=== PATIENT | female | born 1980 | race Caucasian/White ===

== ENCOUNTER 2019-04-13 14:16 | Outpatient (CLI) | payer MEDICAID, SELFPAY ==
[2019-04-13 15:01] LABS: Abs Immature Grans 0.01 k/cumm (0.0-0.09); Absolute Basophil Count 0.03 k/cumm (0.0-0.2); Absolute Eosinophil Count 0.07 k/cumm (0.0-0.7); Absolute Monocyte Count 0.44 k/cumm (0.11-0.7); Absolute Neutrophil Count 4.52 k/cumm (1.2-6.7); Basophils % 0.5; Eosinophils % 1.1; HGB 14.2 g/dL (12.0-15.5); Immature Grans % 0.2; Lymphocytes % 19.1; Mean Corpuscular Hemoglobin 29.8 pg (27.0-33.0); Mean Corpuscular Volume 90.1 fL (80-95); Mean Platelet Volume 9.3 fL (8.0-11.0); Neutrophils % 72.1; Platelet Count 279 x1000/uL (130-400); RBC 4.77 m/cumm (4.00-5.20); White Blood Cell Count 6.27 k/cumm (4.4-10.8)
[2019-04-13 15:51] LABS: ESR 8 mm/hr (0-20)
[2019-04-13 15:58] LABS: ALT 22 U/L (14-59); AST 18 U/L (15-37); Albumin 4.1 g/dL (3.4-5.0); Alkaline Phosphatase 59 U/L (46-116); Anion Gap 11.5 mmol/L (3-11); BUN 10 mg/dL (7-18); Bilirubin, Total 0.4 mg/dL (0.2-1.0); CO2 25.5 mmol/L (21.0-32.0); CREATININE 0.85 mg/dL (0.55-1.02); Calcium 8.8 mg/dL (8.5-10.1); Chloride 104 mmol/L (98-107); Glucose 65 mg/dL (70-100); Sodium 141 mmol/L (136-145); TSH 1.99 uIU/mL (0.36-3.74)
[2019-04-14 10:37] LABS: Lyme Ab w Rflx to Lyme Confirm Negative
[2019-04-14 10:49] LABS: Rheumatoid Factor 9 IU/mL (<12.5)
== END 2019-04-13 14:36 ==
PROVIDERS: PCP Acupuncturist; Visit Provider Naturopath
DX: M25.571 Pain in right ankle and joints of right foot (principal); M54.5 Low back pain; R50.81 Fever presenting with conditions classified elsewhere; R61 Generalized hyperhidrosis
CPT/HCPCS: 36415; 80053; 85652; 84443; 85025; 86431; 86618

== ENCOUNTER 2019-06-01 02:01 | Outpatient (CLI) | payer MEDICAID, SELFPAY | END 2019-06-01 02:21 | PROVIDERS: PCP Acupuncturist; Visit Provider Naturopath | DX: R06.02 Shortness of breath (principal) | CPT/HCPCS: 93005; 93010 ==

== ENCOUNTER 2019-06-30 13:44 | Outpatient (CLI) | payer MEDICAID, SELFPAY | END 2019-06-30 14:04 | PROVIDERS: PCP Acupuncturist; Visit Provider Naturopath | DX: B60.0 Babesiosis (principal) | CPT/HCPCS: 36415; 87207 ==

== ENCOUNTER 2019-07-01 00:44 | Outpatient (CLI) | payer MEDICAID, SELFPAY | END 2019-07-01 01:04 | PROVIDERS: PCP Acupuncturist; Visit Provider Naturopath | DX: B60.0 Babesiosis (principal) | CPT/HCPCS: 36415; 87207 ==

== ENCOUNTER 2022-07-08 09:11 | Outpatient (CLI) | payer MEDICAID, SELFPAY ==
--- NOTE | 2022-07-08 09:00 | RT.EKG_ITS ---
APPROVED REPORT Exam: Resting ECG Reason for Exam: CHEST PAIN Patient Location: O HR:68 bpm ECG Measurements Heart Rate 68 AXIS WV 142 P 44 QRSd 100 QRS 24 QT 396 T 28 QTc 422 Conclusion Sinus rhythm...normal P axis, V-rate 50- 99 Normal Electrocardiogram
== END 2022-07-08 09:12 | disposition home or self-care (01) ==
LOC: CARDOPNVT 09:11
PROVIDERS: PCP Acupuncturist; Visit Provider Naturopath
DX: R07.89 Other chest pain (principal)
CPT/HCPCS: 93005; 93010

== ENCOUNTER 2022-12-25 19:01 | Emergency (ER) | payer MEDICAID, SELFPAY ==
[2022-12-25 19:08] VITALS: BP 120/71; PULSE 81; RESP 20; TEMP 36.3; O2SAT 99
--- NOTE | 2022-12-25 19:36 | ED.GENADUL_ITS ---
Discharge Plan Disposition Patient Disposition: Home Condition: Stable Discharge Details Clinical Impression: Puncture wound of foot, left Primary Care Provider: Sylvia Casanova ED Provider: Lary Villatoro Home Meds and New Rx's Prescriptions: New amoxicillin-pot clavulanate 875-125 mg tablet 1 tab PO BID 7 Days Qty: 14 0RF Rx Instructions: Take one tablet twice daily x 7 days Discharge Instructions Instructions: Puncture Wound (ED) Additional Instructions: Keep clean and dry. Wash with soap and water daily. Allow to air dry. Take the antibiotic with yogurt or probiotic as directed. You were given a tetanus vaccination today. Follow up with primary care provider in 3-5 days. Return to ED sooner if any worsening signs of infection such as red streaks swelling or drainage or concerns. Increase oral fluids. Please take Tylenol or Ibuprofen with food every 4-6 hours as needed for pain and swelling. Referrals: Sylvia Casanova [Primary Care Provider] - 2 weeks Discharge Data Discharge Date/Time-TO BE ENTERED AT DEPARTURE: 12/25/22 20:06 Medical Decision Making 42-year-old female presents to the ER after stepping on a anne nail prior to arrival. Went through her shoe. She is unsure of her last tetanus vaccination. She does have a small puncture wound noted to her left foot the mid pad. No bleeding. No other associated symptoms or concerns. Tdap booster ordered, Augmentin 1 tablet here and to go. Discussed home care. This text was generated using [employer] dictation system, please disregard any oddities of phrase or misspellings. HPI General Mode of arrival: ambulatory . Date/Time Provider Initiated Documentation: 12/25/22 19:34 . Limitations to Documentation: no limitations . Information obtained by: patient, RN notes reviewed and old records reviewed . HPI Narrative: 42-year-old female presents to the ER after stepping on a anne nail prior to arrival. Went through her shoe. She is unsure of her last tetanus vaccination. She does have a small puncture wound noted to her left foot the mid pad. No bleeding. No other associated symptoms or concerns. Related Data Home Medications Medication Instructions Recorded Confirmed amoxicillin 875 mg-potassium 1 tab PO BID 7 days #14 tabs 12/25/22 clavulanate 125 mg tablet Previous Rx's Medication Instructions Recorded amoxicillin 875 mg-potassium 1 tab PO BID 7 days #14 tabs 12/25/22 clavulanate 125 mg tablet Allergies Allergy/AdvReac Type Severity Reaction Status Date / Time No Known Allergies Allergy Unverified 12/25/22 19:15 General Stated Complaint: Laceration KALYN: 4 Review of Systems All systems reviewed & are unremarkable except as noted in HPI and below Integumentary/Breasts Skin/Breast: Reports as per HPI and Reports wounds PFSH All Active Problems (Updated 12/25/22 @ 19:39 by Lary Villatoro NP) Puncture wound of foot, left (Acute) Social History Smoking/Tobacco Use Status: Never Smoking risk assessment performed?: Yes Drug use: Never Do you feel safe at home: Yes Do you feel safe in your relationship?: Yes Exam Extrem Left lower extremity: foot Details: puncture wound plantar medial proximal Details: single Ankle/foot/toe images: 1. Single puncture wound, no bleeding at this time, distal CMS intact. Course Vital Signs Vital signs: Vital Signs Temperature 36.3 C L 12/25/22 19:08 Pulse 81 12/25/22 19:08 Respiratory Rate 20 12/25/22 19:08 Blood Pressure 120/71 12/25/22 19:08 Pulse Oximetry 99 12/25/22 19:08 Temperature 36.3 C L 12/25/22 19:08 Pulse 81 12/25/22 19:08 Respiratory Rate 20 12/25/22 19:08 Blood Pressure 120/71 12/25/22 19:08 Blood Pressure Position Sitting 12/25/22 19:08 Pulse Oximetry 99 12/25/22 19:08 Oxygen Delivery Method Room Air 12/25/22 19:08 Oxygen Flow Rate 0 12/25/22 19:08 Pain Level 4 12/25/22 19:08
[2022-12-25] MEDS: Amox. 875/Clav. 125, 2 TABS/BTL 1 TAB PO (20:02)
[2022-12-25] MEDS: Amoxicillin 875/Clav. 125 TAB PO (20:03)
== END 2022-12-25 20:06 | disposition home or self-care (01) ==
PROVIDERS: Emergency Provider Registered Nurse Emergency; PCP Acupuncturist
DX: S91.332A Puncture wound without foreign body, left foot, initial encounter (principal); W45.0XXA Nail entering through skin, initial encounter
CPT/HCPCS: 90471; 99284

== ENCOUNTER 2024-08-27 02:56 | Emergency (ER) | payer MEDICAID, SELFPAY ==
--- NOTE | 2024-08-27 02:57 | ED.GENADUL_ITS ---
Discharge Plan Disposition Patient Disposition: Home Condition: Good Discharge Details Clinical Impression: Syncope, Minor closed head injury Primary Care Provider: Sylvia Casanova ED Provider: Howard Rousseau Home Meds and New Rx's Prescriptions: No Action No Known Home Meds Discharge Instructions Instructions: Fainting, Adult ED, Minor Head Injury, Adult ED Additional Instructions: You were seen in the ED after a fainting event with resulting head injury. Your vital signs, exam, EKG, CT head are all reassuring. Would rest over the next day or 2 and continue Tylenol as needed. Drink plenty of fluids to stay hydrated. Follow-up with primary care next week especially if continued headaches, nausea. You should return to the ED if you develop severe worsening headache, neurologic change, chest pain, shortness of breath, persistent vomiting, recurrent syncope, other concerns. Referrals: Sylvia Casanova [Primary Care Provider] - [facility] General Mode of arrival: ambulatory . Date/Time Provider Initiated Documentation: 08/27/24 02:57 . Limitations to Documentation: no limitations . Information obtained by: patient and RN notes reviewed . HPI Narrative: Patient presents to ED with complaint of headache and nausea status post syncopal event with resulting head injury. This occurred around 10 PM. She had been in the sauna and started to feel unwell. She did make it outside but got very lightheaded dizzy ultimately passed out. She has been using the sauna for quite a while and has not had this happen to her. She has not been unwell as of recent. No alcohol this evening. Did not experience any chest pain or shortness of breath. When she came to she had episode of vomiting. She has continued to feel nauseated. She has a headache that has gotten a little worse over time. She has pain to the left side of her head which is where she thinks she hit. She has no neck pain. Continues to have no chest pain or shortness of breath. Feels a little tingly in both hands but otherwise no numbness or weakness. Denies any significant medical history. Related Data Home Medications ?Medication ?Instructions ?Recorded ?Confirmed Unknown [No Known Home Meds] 08/27/24 08/27/24 Allergies Allergy/AdvReac Type Severity Reaction Status Date / Time No Known Allergies Allergy Unverified 08/27/24 03:23 General KALYN: 4 Exam Narrative Exam Narrative: Const: WDWN female in NAD. VS per triage. HEENT: NC/AT. Normal facial exam. Neck: Supple. Trachea midline. No spinal tenderness. Lungs: Normal respiratory effort. Lungs are clear. Cor: RRR without murmur. Good radial pulses. Neuro: A+O x 3. Normal speech, mentation, gait. Cranial nerves II - XII grossly intact. No gross motor or sensory deficit. Ext: No C/C/E. Medical Decision Making Patient presents to ED status post syncopal event after she had been using the sauna. She is unsure how long she had been in there. She denies any chest pain or shortness of breath. She felt unwell which made her leave the sauna to go outside at which point she passed out. She has not been ill as of recent and had no alcohol consumption. Still feel this is likely related from sauna use, vasodilatation, orthostasis. Her vital signs here are normal. Her neurologic exam is normal. No cervical spine is cleared clinically. An EKG is sinus rhythm with normal axis and intervals and no acute ST changes. Some mild early repolarization changes only. Because of a persistent and worsening headache with persistent nausea will obtain CT head. She is given Tylenol for the headache as she has not taken anything as of yet. I do not think laboratory studies are necessary at this time. CT head per preliminary radiology read with no acute traumatic injury noted. Feels a little better after the Tylenol. No new symptoms or concerns, stable while here. Recommend rest and continue Tylenol over the next day or 2. Follow-up with primary care next week. Return precautions provided. ECG Data Attestation: I personally reviewed and interpreted this ECG (s) as follows: Prior ECG tracings: available for review Interpretation: see EKG/MDM Quality:SDOH Health Related Social Needs: No Data to Display PFSH All Active Problems (Updated 08/27/24 @ 04:26 by Howard Rousseau MD) Minor closed head injury (Acute) Syncope (Chronic) Medical History No significant past medical history Surgical History H/O oral surgery Social History Smoking/Tobacco Use Status: Never Smoking risk assessment performed?: Yes Alcohol Intake: never Drug use: Never Substance use type: does not use Housing: house Do you feel safe at home: Yes Do you feel safe in your relationship?: Yes
[2024-08-27 03:00] VITALS: PULSE 79; RESP 23; TEMP 36.8; O2SAT 98
--- NOTE | 2024-08-27 03:00 | RT.EKG_ITS ---
APPROVED REPORT Exam: Resting ECG Reason for Exam: fall Patient Location: E HR:73 bpm ECG Measurements Heart Rate 73 AXIS MS 152 P 29 QRSd 95 QRS 29 QT 385 T 34 QTc 425 Conclusion Sinus rhythm...normal P axis, V-rate 60- 99 ST elev, probable normal early repol pattern...ST elevation, age<55 There are no significant changes compared to prior EKG performed on 07/08/2022 at 09:14.
[2024-08-27] MEDS: Acetaminophen 500 MG TAB 1000 MG PO (03:22)
--- NOTE | 2024-08-27 03:46 | DI.CT_ITS ---
Exam(s) CT HEAD WO EXAM: CT HEAD WO CLINICAL HISTORY: head injury/headache/nausea. TECHNIQUE: Imaging Protocol: Axial computed tomography images with coronal and sagittal reformatted images were created and reviewed COMPARISON: No exams were available for comparison FINDINGS: There are no skull fractures. There is no fluid in the visualized paranasal sinuses. There is no evidence of intracranial hemorrhage, mass effect, or shift of midline structures. There are no extra-axial fluid collections. The ventricles are not enlarged or shifted and there is no blo od within the ventricular system nor within the basal cisterns. IMPRESSION: No acute intracranial findings on this noninfused CT scan of the brain. RADIATION DOSE DELIVERED: 796.87mGy.cm Total DLP DATA REPOSITORY: All CT scans at this facility are submitted to the National Radiology Data Registry (NRDR) Dose Index Registry (DIR) with the [employer] ([employer]). RADIATION OPTIMIZATION: All CT scans at this facility use at least one of these dose optimization te chniques: automated exposure control; mA and/or kV adjustment per patient size (includes targeted exa ms where dose is matched to clinical indication); or iterative reconstruction.
--- NOTE | 2024-08-27 04:19 | DI.VRAD_ITS ---
PROCEDURE INFORMATION: Exam: CT Head Without Contrast Exam date and time: 08/27/2024 3:39 AM Age: 43 years old Clinical indication: Injury or trauma; Fall; Blunt trauma (contusions or hematomas); Consciousness not specified; Injury date: 08/27/24; Head injury/headache/nausea TECHNIQUE: Imaging protocol: Computed tomography of the head without contrast. Radiation optimization: All CT scans at this facility use at least one of these dose optimization techniques: automated exposure control; mA and/or kV adjustment per patient size (includes targeted exams where dose is matched to clinical indication); or iterative reconstruction. COMPARISON: No relevant prior studies available. FINDINGS: Brain: Normal. Cerebral ventricles: No ventriculomegaly. Paranasal sinuses: Visualized sinuses are unremarkable. No fluid levels. Mastoid air cells: Normal as visualized. Bones: Unremarkable. No acute fracture. Soft tissues: Unremarkable. IMPRESSION: No acute intracranial abnormality. Dictated and Authenticated by: Mio Napier MD. Orderin Soham Lawrence MD
[2024-08-27 04:38] VITALS: BP 101/57; PULSE 59; RESP 16; O2SAT 98
== END 2024-08-27 04:57 | disposition home or self-care (01) ==
PROVIDERS: Emergency Provider Emergency Medicine; PCP Acupuncturist
DX: S01.80XA Unspecified open wound of other part of head, initial encounter; R55 Syncope and collapse; R51.9 Headache, unspecified; R11.0 Nausea
CPT/HCPCS: 93005; 99284; 70450; 93010; 99283